=== PATIENT | female | born 1930 | race Caucasian/White ===

== ENCOUNTER 2020-01-16 07:04 | Day surgery (SDC) | payer MEDICARE, OTHER ==
[2020-01-09 13:06] LABS: BASOPHILS % (AUTO) 0.8 % (0-1); EOSINOPHILS # (AUTO) 0.1 X10'3 (0-0.9); LYMPHOCYTES # (AUTO) 1.4 X10'3 (1.1-4.8); LYMPHOCYTES % (AUTO) 23.8 % (21-51); MEAN CORPUSCULAR HEMOGLOBIN 35.3 PG (27.0-31.0); MEAN CORPUSCULAR HGB CONC 33.9 g/dL (33.0-36.5); MEAN CORPUSCULAR VOLUME 104.3 FL (78-98); MEAN PLATELET VOLUME 9.7 FL (7.4-10.4); MONOCYTES # (AUTO) 0.4 X10'3 (0-0.9); MONOCYTES % (AUTO) 7.5 % (2-12); NEUTROPHILS # (AUTO) 3.9 X10'3 (1.8-7.7); NEUTROPHILS % (AUTO) 66.9 % (42-75); PRE OP HEMATOCRIT 41.9 % (35.0-45.0); PRE OP HEMOGLOBIN 14.2 g/dL (12.0-16.0); PRE OP PLATELET COUNT 122 X10'3 (140-440); RED BLOOD COUNT 4.02 X10'6 (4.20-5.60); RED CELL DISTRIBUTION WIDTH 16.7 % (11.5-14.5)
[2020-01-09 13:19] LABS: PRE OP PROTIME 10.5 SECONDS (9.0-12.0)
[2020-01-09 13:39] LABS: ALBUMIN 3.8 G/DL (3.4-5.0); ALKALINE PHOSPHATASE 83 IU/L (46-116); BLOOD UREA NITROGEN 22 MG/DL (7-18); BUN/CREATININE RATIO 19.8 (6.6-38.0); CHLORIDE 104 MMOL/L (99-107); CREATININE 1.11 MG/DL (0.40-0.90); PRE OP ALT 31 U/L (30-65); PRE OP ANION GAP 9 (8-16); PRE OP AST 36 U/L (10-37); PRE OP BILIRUB, TOTAL 0.6 MG/DL (0.0-1.0); PRE OP POTASSIUM 4.3 MMOL/L (3.4-5.1); PRE OP SODIUM 141 MMOL/L (135-145); TOTAL CARBON DIOXIDE 27.8 MMOL/L (24-32); TOTAL PROTEIN 7.8 G/DL (6.4-8.2); eGFR 46 ML/MIN
[2020-01-09 13:40] LABS: PRE OP GLUCOSE 107 MG/DL (70-104)
[~2020-01-16] VITALS: Ht 154.9 cm; Wt 78.9 kg
[~2020-01-16 07:04] MED LIST: ACET-1995 PO; ALEN70TA78 PO; CELADRIN PO; FLAX10007 PO; HYDROcodone/acetaminophen 10/325mg tab PO PRN; HYDROmorphone 1 mg/ml syringe IV PRN; HYDROmorphone inj. 0.5 MG/0.5 ML DISP.SYRIN IV PRN; LEVO50TA PO; LISI10TA4 PO; MELA1TAB28 PO; MULT-1085 PO; NAPR250T4 PO; TURM500C4 PO; UBID1CAP54 PO; acetaminophen 325mg tablet PO ONE; acetaminophen 325mg tablet PO PRN; bisacodyl 10mg suppository rectal RC PRN; cefazolin/dext.iso 2gm/50ml 50 ML IV ONE; celeCOXIB 100mg capsule PO ONE; diphenhydrAMINE 25mg capsule PO PRN; famotidine 20mg tablet PO ONE; gabapentin 300mg capsule PO ONE; magnesium hydroxide 30ml (MOM) UD suspension PO PRN; metoclopramide 5 mg/ml inj IV ONE; ondansetron/PF 4mg/2ml inj IV PRN; oxyCODONE SR 10mg (sust. release) tab -2 tabs (20mg) PO ONE; potassium cl 20mEq in 1/2 NS 1,000 ML IV SCH; ringers solution, lacted 1,000 ML IV SCH; tranexamic acid inj. 0 MG in normal saline 100ml IV soln 100 ML IV ONE; tranexamic acid inj. 1,000 MG in normal saline 100 ML IV ONE; vancomycin 1,500 MG in NS 300ml IV soln IV ONE
[2020-01-16 07:15] VITALS: BP 163/99
[2020-01-16] MEDS ORDERED: multivitamins, therapeutics tablet PO SCH (08:00)
[2020-01-16] MEDS ORDERED: ceFAZolin 1GM/D5W- ADD-VANTAGE 50 ML IV SCH (08:00)
[2020-01-16] MEDS ORDERED: vancomycin/NS 1 GM ADD-VANTAGE 250 ML IV SCH (08:00)
[2020-01-16] MEDS ORDERED: ascorbic acid 500mg tablet PO SCH (08:00)
[2020-01-16] MEDS ORDERED: non-formulary drug (Levothyroxine Sodium (Synthroid) 1 TAB) PO SCH (08:00)
[2020-01-16] MEDS ORDERED: aspirin 325mg tablet PO SCH (08:30)
--- NOTE | 2020-01-16 08:50 | NUR ---
{null, DR ARNOLD AT BEDSIDE TO VIEW OPEN SORE LEFT ANTERIOR ANKLE. SURGERY CX BY MD. DR ARNOLD SPOKE WITH PT AND DAUGHTER ABOUT IMPORTANCE OF INFECTION PREVENTION, NO SPECIFIC INSTRUCTIONS GIVEN FOR WOUND CARE NEEDED PER MD. PT IS TO CALL MD OFFICE ONCE THE WOUND IS HEALED AND RESCHEDULE SURGERY. NO MEDS WERE GIVEN AND IV WAS NOT STARTED. PT DRESSED AND DC'D VIA W/C (DO TO DISTANCE TO PARKING LOT) WITH ALL PERSONAL BELONGINGS (PHONE/DENTURE/GLASSES) WITH DAUGHTER PRESENT TO PVT AUTO. }
[2020-01-16] MEDS ORDERED: lisinopril 10 MG tablet PO SCH (21:00)
[2020-01-16] MEDS ORDERED: sennosides 8.6mg tablet PO SCH (21:00)
[2020-01-17] MEDS ORDERED: celeCOXIB 100mg capsule PO SCH (20:00)
== END 2020-01-16 08:50 | disposition home or self-care (01) ==
LOC: PAS 07:04
PROVIDERS: ATTEND Orthopaedic Surgery
DX: M16.12 Unilateral primary osteoarthritis, left hip (principal); Z53.8 Procedure and treatment not carried out for other reasons; L98.8 Other specified disorders of the skin and subcutaneous tissue; I10 Essential (primary) hypertension; Z79.01 Long term (current) use of anticoagulants; Z79.899 Other long term (current) drug therapy; Z20.828 Contact with and (suspected) exposure to other viral communicable diseases; Z90.710 Acquired absence of both cervix and uterus; Z90.49 Acquired absence of other specified parts of digestive tract; Z98.890 Other specified postprocedural states; Z85.828 Personal history of other malignant neoplasm of skin; Z88.5 Allergy status to narcotic agent; Z88.0 Allergy status to penicillin
CPT/HCPCS: 36415; 80053; 84443; 85025; 85610; 85730; 86885; 86900; 86901; 87081; 87635; 93005; J3370; J7040; J7120

== ENCOUNTER 2020-02-20 05:43 | Inpatient (IN) | payer MEDICARE, OTHER ==
[2020-02-13 15:18] LABS: BASOPHILS % (AUTO) 0.7 % (0-1); EOSINOPHILS # (AUTO) 0.1 X10'3 (0-0.9); EOSINOPHILS % (AUTO) 2.2 % (0-6); LYMPHOCYTES # (AUTO) 1.3 X10'3 (1.1-4.8); LYMPHOCYTES % (AUTO) 26.9 % (21-51); MEAN CORPUSCULAR HEMOGLOBIN 35.1 PG (27.0-31.0); MEAN CORPUSCULAR HGB CONC 33.6 g/dL (33.0-36.5); MEAN CORPUSCULAR VOLUME 104.4 FL (78-98); MEAN PLATELET VOLUME 9.4 FL (7.4-10.4); MONOCYTES # (AUTO) 0.6 X10'3 (0-0.9); MONOCYTES % (AUTO) 11.4 % (2-12); NEUTROPHILS # (AUTO) 2.8 X10'3 (1.8-7.7); NEUTROPHILS % (AUTO) 58.8 % (42-75); PRE OP HEMATOCRIT 38.6 % (35.0-45.0); PRE OP PLATELET COUNT 111 X10'3 (140-440); RED CELL DISTRIBUTION WIDTH 14.3 % (11.5-14.5)
[2020-02-13 15:25] LABS: CLARITY,URINE SLIGHTLY CLOUDY (Clear); COLOR,URINE YELLOW (Yellow); GLUCOSE, URINE NEGATIVE (Neg); KETONES,URINE NEGATIVE (Neg); LEUKOCYTE ESTERASE ,URINE SMALL (Neg); NITRITES, URINE NEGATIVE (Neg); OCCULT BLOOD,URINE NEGATIVE (Neg); PH,URINE 5.5 (4.8-8.0); PROTEIN,URINE NEGATIVE (Neg); UROBILINOGEN,URINE 0.2 E.U/dL (0.2-1.0)
[2020-02-13 15:28] LABS: PRE OP PROTIME 10.4 SECONDS (9.0-12.0)
[2020-02-13 15:38] LABS: ALBUMIN 3.3 G/DL (3.4-5.0); ALBUMIN/GLOBULIN RATIO 0.8 (1.1-1.5); ALKALINE PHOSPHATASE 191 IU/L (46-116); BLOOD UREA NITROGEN 14 MG/DL (7-18); BUN/CREATININE RATIO 10.7 (6.6-38.0); CHLORIDE 107 MMOL/L (99-107); CREATININE 1.31 MG/DL (0.40-0.90); PRE OP ANION GAP 8 (8-16); PRE OP AST 83 U/L (10-37); PRE OP BILIRUB, TOTAL 0.5 MG/DL (0.0-1.0); PRE OP POTASSIUM 4.1 MMOL/L (3.4-5.1); PRE OP SODIUM 143 MMOL/L (135-145); TOTAL CARBON DIOXIDE 27.7 MMOL/L (24-32); TOTAL PROTEIN 7.4 G/DL (6.4-8.2); eGFR 38 ML/MIN
[2020-02-13 15:46] LABS: PRE OP ALT 114 U/L (30-65)
[2020-02-13 15:48] LABS: PRE OP GLUCOSE 125 MG/DL (70-104)
[2020-02-13 16:01] LABS: UA COLLECTION TYPE VOIDED
[2020-02-13 16:03] LABS: WBC,URINE 50-100 /HPF (0-4)
[2020-02-13 16:04] LABS: RBC,URINE 0-2 /HPF (0-2)
[2020-02-13 16:08] LABS: BACTERIA,URINE 3+ /HPF (Neg); SQUAMOUS EPITHELIAL CELL,UR FEW /LPF (FEW)
[2020-02-13 16:09] LABS: WBC CLUMPS,URINE MODERATE /HPF (NEGATIVE)
[2020-02-20] VITALS (21 sets, daily range): BP systolic 91–163; BP diastolic 51–89
[~2020-02-20] VITALS: Ht 154.9 cm; Wt 76.9 kg
[~2020-02-20 05:43] MED LIST changes: +ASCO-134 PO; +CA C1TAB89 PO; -CELADRIN PO; -HYDROcodone/acetaminophen 10/325mg tab PO PRN; -HYDROmorphone 1 mg/ml syringe IV PRN; -HYDROmorphone inj. 0.5 MG/0.5 ML DISP.SYRIN IV PRN; -MELA1TAB28 PO; -acetaminophen 325mg tablet PO PRN; -bisacodyl 10mg suppository rectal RC PRN; +ceFAZolin 2gm in dextrose, iso 50 ML IV ONE; -cefazolin/dext.iso 2gm/50ml 50 ML IV ONE; -diphenhydrAMINE 25mg capsule PO PRN; -magnesium hydroxide 30ml (MOM) UD suspension PO PRN; -ondansetron/PF 4mg/2ml inj IV PRN; -potassium cl 20mEq in 1/2 NS 1,000 ML IV SCH; +tranexamic acid 1gm/0.7% sal. 100 ML IV ONE; -tranexamic acid inj. 0 MG in normal saline 100ml IV soln 100 ML IV ONE; -tranexamic acid inj. 1,000 MG in normal saline 100 ML IV ONE
[2020-02-20] MEDS ORDERED: HYDROmorphone inj. 0.5 MG/0.5 ML DISP.SYRIN IV PRN (06:50)
[2020-02-20] MEDS ORDERED: acetaminophen 325mg tablet PO PRN (06:50)
[2020-02-20] MEDS ORDERED: ondansetron/PF 4mg/2ml inj IV PRN ×2 (06:50→09:40)
[2020-02-20] MEDS ORDERED: magnesium hydroxide 30ml (MOM) UD suspension PO PRN (06:50)
[2020-02-20] MEDS ORDERED: diphenhydrAMINE 25mg capsule PO PRN ×2 (06:50)
[2020-02-20] MEDS ORDERED: ALENDRONATE SODIUM 70 MG PO SCH (06:50)
[2020-02-20] MEDS ORDERED: HYDROmorphone 1 mg/ml syringe IV PRN (06:50)
[2020-02-20] MEDS ORDERED: HYDROcodone/acetaminophen 10/325mg tab PO PRN (06:50)
[2020-02-20] MEDS ORDERED: bisacodyl 10mg suppository rectal RC PRN (06:50)
[2020-02-20] MEDS ORDERED: ROPIVAcaine inj 250 MG, CloNIDine/PF inj 80 MCG, epiNEPHrine inj 0.5 MG in normal salin... IV ONE (07:20)
[2020-02-20] MEDS ORDERED: vancomycin 1,000mg inj ONE (07:38)
[2020-02-20] MEDS ORDERED: non-formulary drug (Levothyroxine Sodium (Synthroid) 1 TAB) PO SCH (08:00)
[2020-02-20] MEDS ORDERED: ceFAZolin/D5W- 1GM premix 50 ML IV SCH (08:00)
[2020-02-20] MEDS ORDERED: ASCORBIC ACID PO SCH (08:00)
[2020-02-20] MEDS ORDERED: vancomycin/NS 1 GM ADD-VANTAGE 250 ML IV SCH ×2 (08:00→20:00)
[2020-02-20] MEDS ORDERED: multivitamins, therapeutics tablet PO SCH (08:00)
[2020-02-20] MEDS ORDERED: gabapentin 300mg capsule PO SCH (08:00)
[2020-02-20] MEDS ORDERED: fentaNYL/PF 50MCG/1 ML 2ML syringe ONE (08:30)
[2020-02-20] MEDS ORDERED: aspirin 325mg tablet PO SCH (08:30)
[2020-02-20] MEDS ORDERED: MIDAZolam 5mg/5ml vial ONE (08:31)
[2020-02-20] MEDS ORDERED: propofol inj 20 ML IV ONE (08:31)
[2020-02-20] MEDS ORDERED: ePHEDrine 50MG/ML INJ. ONE (08:34)
[2020-02-20] MEDS ORDERED: ringers solution, lacted 1,000 ML IV SCH (09:40)
[2020-02-20] MEDS ORDERED: morphine 2 MG/ML inj. syringe IV PRN (09:40)
[2020-02-20] MEDS ORDERED: morphine 4 MG/ML inj SYRINge IV PRN (09:40)
[2020-02-20] MEDS ORDERED: meperidine/PF 25mg/ml syringe IV PRN ×3 (09:40)
[2020-02-20] MEDS ORDERED: proCHLORperazine 10 MG/2 ml inj IV PRN (09:40)
--- NOTE | 2020-02-20 10:22 | NUR ---
Received from OR via ORTHO BED, accompanied by Anesthesiologist DR. AVINA and report given by Anesthesiolgist. PPP LEFT FOOT, LEFT HIP DSG CDI, BP SLIGHTLY LOW BUT DR. AVINA DOESN'T WANT TO TREAT. IV PATENT, NO RESP DISTRESS, NO PAIN. SPINAL AT A L5 RIGHT NOW.
--- NOTE | 2020-02-20 11:02 | NUR ---
REPORT CALLED TO Domonique ON ORTHO. HOB UP WITH NO CHANGE IN BP. DSG CDI, POWDER HAYDEN APPLIED. PULSE STILL PALPABLE. SPINAL AT L5.
--- NOTE | 2020-02-20 11:52 | NUR ---
TRANSFERRED TO ROOM WITHOUT INCIDENT. VSS, KNEE IMMOBILIZER IN PLACE, DSG CDI. PPP, SKIN WARM AND DRY. NO COMPLAINTS OF PAIN OR OTHERWISE.
[2020-02-20] MEDS: potassium cl 20mEq in 1/2 NS 1,000 ML IV SCH ×3 (12:00→22:50)
[2020-02-20] MEDS ORDERED: tranexamic acid inj. 800 MG in normal saline 100ml IV soln 100 ML IV ONE (15:00)
[2020-02-20] MEDS: HYDROcodone/acetaminophen 10/325mg tab PO PRN ×2 (16:05→23:28)
[2020-02-20] MEDS: gabapentin 300mg capsule PO SCH ×2 (16:05→20:04)
[2020-02-20] MEDS: ceFAZolin/D5W- 1GM premix 50 ML IV SCH ×2 (16:15→23:28)
[2020-02-20] MEDS: sennosides 8.6mg tablet PO SCH (20:03)
[2020-02-20] MEDS: lisinopril 10 MG tablet PO SCH (20:04)
[2020-02-20] MEDS ORDERED: lisinopril 10 MG tablet PO SCH (21:00)
[2020-02-21] VITALS: BP 110/88
[2020-02-21] MEDS: HYDROcodone/acetaminophen 10/325mg tab PO PRN ×3 (05:19→23:45)
[2020-02-21] MEDS: potassium cl 20mEq in 1/2 NS 1,000 ML IV SCH ×3 (05:21→22:50)
[2020-02-21 05:59] LABS: BASOPHILS % (AUTO) 0.3 % (0-1); EOSINOPHILS # (AUTO) 0.2 X10'3 (0-0.9); EOSINOPHILS % (AUTO) 1.8 % (0-6); HEMATOCRIT 33.4 % (35.0-45.0); HEMOGLOBIN 11.5 g/dl (12.0-16.0); LYMPHOCYTES # (AUTO) 1.5 X10'3 (1.1-4.8); LYMPHOCYTES % (AUTO) 16.9 % (21-51); MEAN CORPUSCULAR HEMOGLOBIN 36.2 PG (27.0-31.0); MEAN CORPUSCULAR HGB CONC 34.4 g/dL (33.0-36.5); MEAN CORPUSCULAR VOLUME 105.2 FL (78-98); MEAN PLATELET VOLUME 9.4 FL (7.4-10.4); MONOCYTES # (AUTO) 0.6 X10'3 (0-0.9); MONOCYTES % (AUTO) 6.7 % (2-12); NEUTROPHILS # (AUTO) 6.5 X10'3 (1.8-7.7); NEUTROPHILS % (AUTO) 74.3 % (42-75); PLATELET COUNT 163 X10'3 (140-440); RED BLOOD COUNT 3.17 X10'6 (4.20-5.60); RED CELL DISTRIBUTION WIDTH 14.3 % (11.5-14.5); WHITE BLOOD COUNT 8.8 X10'3 (4.5-11.0)
[2020-02-21 06:19] LABS: ANION GAP 6 (8-16); CHLORIDE 106 MMOL/L (99-107); POTASSIUM 4.4 MMOL/L (3.5-5.1); SODIUM 137 MMOL/L (135-145)
--- NOTE | 2020-02-21 06:49 | NUR ---
Problems reprioritized. Patient report given, questions answered & plan of care reviewed with Sharyn HENDRICKS.
[2020-02-21 08:00] VITALS: BP_SYST 120; BP_SYST 96; BP_DIAS 51; BP_DIAS 64
[2020-02-21] MEDS: gabapentin 300mg capsule PO SCH ×3 (08:00→21:00)
[2020-02-21 11:00] VITALS: BP 96/51
[2020-02-21] MEDS: aspirin 325mg tablet PO SCH (11:05)
[2020-02-21] MEDS: multivitamins, therapeutics tablet PO SCH (11:14)
[2020-02-21] MEDS: ascorbic acid 500mg tablet PO SCH (11:14)
[2020-02-21] MEDS: levoTHYROXINE 25mcg tablet PO SCH (11:15)
--- NOTE | 2020-02-21 12:19 | NUR ---
Joint Replacement Consult: Pt seen by RD for written/verbal high protein ed w/ RD contact information provided. Pt reports good appetite at this time; is agreeable to cottage cheese w/ fruit at dinner tonight and lunches following also only whole milk w/ meals. Dietary notified.. RD encouraged pt to contact dietitian's office if further questions. Addendum: 02/21/20 at 1219 [address] C De Los [address] RD Amended: Links added.
--- NOTE | 2020-02-21 18:46 | NUR ---
Report to Lima HENDRICKS
[2020-02-21 20:00] VITALS: BP 120/66
[2020-02-21 21:00] VITALS: BP 112/65
[2020-02-21] MEDS: sennosides 8.6mg tablet PO SCH (21:00)
[2020-02-21] MEDS: lisinopril 10 MG tablet PO SCH (21:04)
[2020-02-22] VITALS: BP 105/64
[2020-02-22] MEDS: HYDROcodone/acetaminophen 10/325mg tab PO PRN ×2 (04:22→11:02)
[2020-02-22 05:48] LABS: BASOPHILS % (AUTO) 0.4 % (0-1); EOSINOPHILS # (AUTO) 0.2 X10'3 (0-0.9); EOSINOPHILS % (AUTO) 2.4 % (0-6); HEMATOCRIT 31.1 % (35.0-45.0); HEMOGLOBIN 10.7 g/dl (12.0-16.0); LYMPHOCYTES # (AUTO) 2.2 X10'3 (1.1-4.8); LYMPHOCYTES % (AUTO) 21.6 % (21-51); MEAN CORPUSCULAR HEMOGLOBIN 35.6 PG (27.0-31.0); MEAN CORPUSCULAR HGB CONC 34.3 g/dL (33.0-36.5); MEAN CORPUSCULAR VOLUME 103.9 FL (78-98); MEAN PLATELET VOLUME 9.7 FL (7.4-10.4); MONOCYTES # (AUTO) 0.9 X10'3 (0-0.9); NEUTROPHILS # (AUTO) 6.7 X10'3 (1.8-7.7); NEUTROPHILS % (AUTO) 66.6 % (42-75); PLATELET COUNT 157 X10'3 (140-440); RED BLOOD COUNT 2.99 X10'6 (4.20-5.60); RED CELL DISTRIBUTION WIDTH 14.3 % (11.5-14.5); WHITE BLOOD COUNT 10.1 X10'3 (4.5-11.0)
[2020-02-22] MEDS ORDERED: ASPI-1 PO (07:30)
[2020-02-22] MEDS: ascorbic acid 500mg tablet PO SCH (07:49)
[2020-02-22] MEDS: levoTHYROXINE 25mcg tablet PO SCH (07:49)
[2020-02-22] MEDS: multivitamins, therapeutics tablet PO SCH (07:49)
[2020-02-22] MEDS: gabapentin 300mg capsule PO SCH (07:49)
[2020-02-22] MEDS: aspirin 325mg tablet PO SCH (07:49)
[2020-02-22 08:00] VITALS: BP 109/71
--- NOTE | 2020-02-22 11:59 | NUR ---
Patients belongings gathered and sent home with patient. PIV removed, cannula intact. Patient has discharge medications at home and follow up prearranged. Discharge instructions provided to patient.
== END 2020-02-22 11:46 | disposition home or self-care (01) | DRG 470 ==
LOC: PAS 05:43 → SUR 3N 06:47 → OBSVTOIN 02-21 16:00
PROVIDERS: ADMIT Orthopaedic Surgery; ATTEND Orthopaedic Surgery
PROC: 0SRB06Z Replacement of Left Hip Joint with Oxidized Zirconium on Polyethylene Synthetic Substitute, Open Approach (ICD-10-PCS; principal; 2020-02-20 08:36)
DX: M16.12 Unilateral primary osteoarthritis, left hip (principal); D50.0 Iron deficiency anemia secondary to blood loss (chronic); I10 Essential (primary) hypertension; E03.9 Hypothyroidism, unspecified; Z79.82 Long term (current) use of aspirin; Z20.828 Contact with and (suspected) exposure to other viral communicable diseases
CPT/HCPCS: 36415; 72170; 80051; 80053; 81001; 82948; 84443; 85025; 85610; 85730; 86885; 86900; 86901; 87077; 87081; 87088; 87186; 87635; 97110; 97116; 97162; 97530; A7000; C1776; G0378; J0690; J2250; J2704; J2765; J2795; J3010; J3370; J3480; J7040; J7120